=== PATIENT | female | born 1990 | race Caucasian/White ===

== ENCOUNTER 2017-02-28 06:16 | Inpatient (IN) | payer MEDICAID ==
[~2017-02-28] VITALS: Ht 160 cm; Wt 83.0 kg
[2017-02-28] MEDS ORDERED: D5%-LACTATED RINGERS 1,000 ML IV SCH (06:31)
[2017-02-28] MEDS ORDERED: OXYTOCIN 30U/ 0.9% NaCL 500ML 500 ML IV ONE (06:31)
[2017-02-28] MEDS ORDERED: OXYTOCIN 30U/ 0.9% NaCL 500ML 500 ML IV PRN ×2 (06:31→08:26)
[2017-02-28] MEDS ORDERED: AMPICILLIN 2 GM in SODIUM CHLORIDE 0.9% 100 ML IVPB STA (06:31)
[2017-02-28] MEDS ORDERED: OXYTOCIN 30U/ 0.9% NaCL 500ML 500 ML ONE ×2 (06:43→19:16)
[2017-02-28] MEDS ORDERED: LIDOCAINE 1%, 20ML ONE (06:43)
[2017-02-28] MEDS ORDERED: NEWBORN KIT ONE (06:44)
[2017-02-28] MEDS ORDERED: MISOPROSTOL 200 MCG TABLET ONE (06:44)
[2017-02-28] MEDS: AMPICILLIN 1 GM in SODIUM CHLORIDE 0.9% 50 ML IVPB SCH ×3 (07:00→14:53)
[2017-02-28] MEDS ORDERED: PLEASE ENTER ALLERGIES MC SCH ×2 (07:00)
[2017-02-28] MEDS ORDERED: ONDANSETRON 2MG/ML, 2ML IVPush PRN (07:00)
[2017-02-28] MEDS: LACTATED RINGERS 1,000 ML IV SCH ×2 (07:00→15:40)
[2017-02-28] MEDS ORDERED: ALUMINUM/MAG/SIMETHICONE 30 ML UDC PO PRN (07:00)
[2017-02-28] MEDS ORDERED: SODIUM CITRATE/CITRIC ACID 30 ML UDC PO PRN (07:00)
[2017-02-28 07:20] VITALS: BP 119/78
[2017-02-28] MEDS ORDERED: OXYTOCIN 30U/ 0.9% NaCL 500ML 500 ML IV SCH (08:29)
[2017-02-28] MEDS ORDERED: DIPH,PERTUSS(ACELL),TET VAC/PF NC IM-VACC PRN (08:30)
[2017-02-28] MEDS ORDERED: MAGNESIUM HYDROXIDE 8%, 30ML UDC PO PRN (08:30)
[2017-02-28] MEDS ORDERED: ACETAMINOPHEN 325 MG TABLET PO PRN ×2 (08:30)
[2017-02-28] MEDS ORDERED: IBUPROFEN 600 MG TABLET PO PRN (08:30)
[2017-02-28] MEDS ORDERED: ONDANSETRON 2MG/ML, 2ML IV PRN (08:30)
[2017-02-28] MEDS ORDERED: OXYcodone/APAP 5/325MG TABLET PO PRN ×2 (08:30)
[2017-02-28] MEDS ORDERED: MEASLES,MUMPS&RUBELLA VACC/PF 0.5 ML SQ-VACC PRN (08:30)
[2017-02-28] MEDS ORDERED: CALCIUM CARBONATE 500 MG TAB.CHEW PO PRN (08:30)
[2017-02-28] MEDS ORDERED: MISOPROSTOL 200 MCG TABLET PR PRN (08:30)
[2017-02-28] MEDS ORDERED: PRENATAL VIT/IRON/FA 1 EACH TABLET PO SCH (09:00)
[2017-02-28] MEDS ORDERED: AMPICILLIN 2 GM in SODIUM CHLORIDE 0.9% 100 ML IVPB ONE (09:40)
[2017-02-28] MEDS ORDERED: FENTANYL PF 100 MCG/2ML ONE ×3 (13:47→15:04)
[2017-02-28] MEDS: FENTANYL PF 100 MCG/2ML IVPush PRN ×2 (13:50→14:52)
[2017-02-28] MEDS ORDERED: FENTANYL/BUPIV./NS/PF 250 ML EPIDCONT SCH ×2 (13:58→14:59)
[2017-02-28] MEDS ORDERED: LACTATED RINGERS 1,000 ML IVBOLUS PRN ×2 (14:00→15:00)
[2017-02-28] MEDS ORDERED: LACTATED RINGERS 1,000 ML IV SCH (14:59)
[2017-02-28] MEDS ORDERED: NALOXONE 0.4 MG/ML, 1ML IVPush PRN (15:00)
[2017-02-28] MEDS ORDERED: EPHEDRINE 50 MG/ML, 1ML IVPush PRN (15:00)
[2017-02-28] MEDS ORDERED: FENTANYL/BUPIV./NS/PF 0 ML EPIDCONT ONE (15:01)
[2017-02-28] MEDS ORDERED: BUPIVACAINE/PF 0.25% ONE (15:01)
[2017-02-28 19:30] VITALS: BP 119/71
[2017-02-28] MEDS: DOCUSATE 100 MG CAPSULE PO PRN (22:02)
[2017-02-28 23:30] VITALS: BP 122/74
[2017-03-01 05:15] VITALS: BP 102/59
[2017-03-01] MEDS: DOCUSATE 100 MG CAPSULE PO PRN (09:55)
[2017-03-01 12:25] VITALS: BP 111/77
[2017-03-01] MEDS ORDERED: OXYcodone/APAP 5/325MG TABLET PO ONE (15:30)
[2017-03-01] MEDS ORDERED: IBUP-1222 PO (16:05)
[2017-03-01] MEDS ORDERED: OXYC-302 PO (16:06)
== END 2017-03-01 17:50 | disposition home or self-care (01) | DRG 775 ==
LOC: LDOP 06:16 → LDIP 06:28 → 2NW 19:21
PROVIDERS: ADMIT Obstetrics & Gynecology Maternal & Fetal Medicine; ATTEND Obstetrics & Gynecology Maternal & Fetal Medicine
PROC: 10E0XZZ Delivery of Products of Conception, External Approach (ICD-10-PCS; principal; 2017-02-28)
DX: O99.824 Streptococcus B carrier state complicating childbirth (principal); Z37.0 Single live birth; Z3A.40 40 weeks gestation of pregnancy
CPT/HCPCS: 36415; 85025; 86850; 86900; J0290; J3010; J2590; J7120